=== PATIENT | male | born 1990 | race African-American/Black ===

== ENCOUNTER 2024-03-13 12:34 | Inpatient (IN) | payer BC ==
[2024-03-13 13:25] VITALS: BMI 33.1
[2024-03-13] MEDS ORDERED: BENZONATATE 200 MG CAPSULE PO PRN (14:10)
[2024-03-13] MEDS ORDERED: P-EPHED 60MG/TRIPROLIDI 2.5MG TABLET PO PRN (14:10)
[2024-03-13] MEDS ORDERED: NICOTINE POLACRILEX 2 MG GUM BUC PRN (14:10)
[2024-03-13] MEDS ORDERED: LOPERAMIDE HCL 2 MG CAPSULE PO PRN (14:10)
[2024-03-13] MEDS ORDERED: BENZOCAINE/MENTHOL (CHLORASEPTIC ) LOZENGE MM PRN (14:10)
[2024-03-13] MEDS ORDERED: IBUPROFEN 400 MG TABLET (FP) PO PRN (14:10)
[2024-03-13] MEDS ORDERED: ACETAMINOPHEN 325 MG TABLET (FP) PO PRN (14:10)
[2024-03-13] MEDS ORDERED: MAGNESIUM HYDROX 2400MG/30ML ORAL SUSPENSION 30 ML CUP PO PRN (14:10)
[2024-03-13] MEDS ORDERED: NICOTINE POLACRILEX 2 MG LOZENGE BC PRN (14:10)
[2024-03-13] MEDS ORDERED: guaiFENesin 600 MG TABLET.ER (FP) PO PRN (14:10)
[2024-03-13] MEDS ORDERED: POLYETHYLENE GLYCOL (HEALTHYLAX) 3350 17 GM PACKET PO PRN (14:10)
[2024-03-13] MEDS ORDERED: MAG HYDROX/AL HYDROX/SIMETH 30 ML UNIT-DOSE CUP PO PRN (14:10)
[2024-03-13] MEDS: propRANOLol HCL 10 MG TABLET PO ONE (15:18)
[2024-03-13] MEDS: LIDOCAINE 5% TOPICAL PATCH TP SCH (15:23)
[2024-03-13] MEDS: TUBERCULIN PPD 5 TU/0.1ML SYRINGE (IN PATIENT USE ONLY) ID ONE (17:31)
[2024-03-13] MEDS: LIDOCAINE PATCH REMOVAL MC SCH (21:44)
[2024-03-13] MEDS: THIAMINE 100 MG TABLET PO SCH (21:44)
[2024-03-13] MEDS: MELATONIN 5 MG TABLETS PO SCH (21:44)
[2024-03-14] MEDS: PRENATAL VITAMINS W/ FOLIC ACID TABLET (FP) PO SCH (10:17)
[2024-03-14] MEDS: ESCITALOPRAM OXALATE 20 MG TABLET PO SCH (11:14)
[2024-03-14 11:27] LABS: POTASSIUM 3.8 mmol/L (3.5-5.1)
[2024-03-14 11:31] LABS: HEMATOCRIT 41.1 % (35.4-49); HEMOGLOBIN 13.9 GM/dL (11.7-16.9); MCH 31.1 pg (25.7-33.7); MCHC 33.9 g/dl (32.0-35.9); MEAN CELL VOLUME 91.8 fl (80-96); MEAN PLT VOLUME 7.8 fl (7.5-11.1); PLATELET COUNT 302 10^3/uL (134-434); RBC 4.48 M/mm3 (4.00-5.60); RDW 13.1 % (11.9-15.9); WHITE BLOOD COUNT 4.5 K/mm3 (4.0-10.0)
[2024-03-14 11:32] LABS: ALBUMIN 3.5 g/dl (3.4-5.0); CALCIUM 8.8 mg/dL (8.5-10.1)
[2024-03-14 11:33] LABS: BLOOD UREA NITROGEN 16.8 mg/dL (7-18)
[2024-03-14 11:36] LABS: CREATININE 1.1 mg/dL (0.55-1.3)
[2024-03-14 11:37] LABS: BILIRUBIN,TOTAL 0.6 mg/dL (0.2-1)
[2024-03-14 11:38] LABS: TOT PROT 6.9 g/dl (6.4-8.2)
[2024-03-14 13:34] LABS: SYPHILIS W/ RPR CONF NON-REACTIVE (NONREACTIVE)
[2024-03-14] MEDS: hydrOXYzine PAMOATE 25 MG CAPSULE (FP) PO PRN (21:39)
[2024-03-15 14:45] LABS: EPI CELLS 36 /uL (0-25.1); HYALINE CASTS 34 /uL (0-3.1); URINE APPEARANCE CLEAR; URINE BACTERIA 93 /uL (0-1359); URINE BILIRUBIN NEGATIVE (NEGATIVE); URINE COLOR YELLOW; URINE GLUCOSE (UA) NEGATIVE (NEGATIVE); URINE KETONE TRACE (NEGATIVE); URINE LEUK ESTERASE 1+ (NEGATIVE); URINE NITRITE NEGATIVE (NEGATIVE); URINE PROTEIN TRACE (NEGATIVE); URINE RBC 16 /uL (0-23.9); URINE WBC 115 /uL (0-25.8)
[2024-03-17] MEDS: IBUPROFEN 600 MG TABLET (FP) PO PRN (10:19)
[2024-03-19 06:47] VITALS: RESP 18
[2024-03-25 06:59] VITALS: BP 112/62; PULSE 75; TEMP 97.9
== END 2024-03-25 09:30 | disposition home or self-care (01) | DRG 772 ==
LOC: YASAS 12:34 → Y3NR 14:41 → Y5N 03-15 13:25 → Y3NR 03-15 15:29 → Y5N 03-15 15:31
PROVIDERS: ADMIT Allergy & Immunology; ATTEND Psychiatry & Neurology Pain Medicine
PROC: HZ42ZZZ Group Counseling for Substance Abuse Treatment, Cognitive-Behavioral (ICD-10-PCS; principal; 2024-03-13)
DX: F14.20 Cocaine dependence, uncomplicated (principal); F12.20 Cannabis dependence, uncomplicated; F17.210 Nicotine dependence, cigarettes, uncomplicated; F19.24 Other psychoactive substance dependence with psychoactive substance-induced mood disorder
CPT/HCPCS: 36415; 80053; 80305; 80307; 81003; 85027; 86780; 86803; 87811